=== PATIENT | male | born 1995 | race Caucasian/White ===

== ENCOUNTER 2025-09-17 23:30 | Emergency (ER) | payer MEDICAID ==
[~2025-09-17] VITALS: Ht 175.3 cm; Wt 75.0 kg
[2025-09-17 23:38] VITALS: O2SAT 99
[2025-09-18 01:09] LABS: CREATININE 1.0 mg/dL (0.6-1.3)
[2025-09-18 01:10] LABS: TROPONIN I HIGH SENSITIVITY < 4 ng/L (3.0-53); UREA NITROGEN BLOOD 9 mg/dL (9-23)
[2025-09-18 01:11] LABS: ASPARTATE AMINOTRANSFERASE 17 IU/L (<34)
[2025-09-18 01:12] LABS: BASOPHILS % 0.6 % (0.0-2.0); BILIRUBIN DIRECT < 0.1 mg/dL (<=3.0); BILIRUBIN TOTAL 0.3 mg/dL (0.1-1.0); EOSINOPHILS % 1.4 % (0.0-5.0); HEMATOCRIT. 42.4 % (42.0-52.0); HEMOGLOBIN. 13.8 g/dL (14.0-18.0); LYMPHOCYTES % 24.9 % (20.0-50.0); MEAN PLATELET VOLUME 7.6 fl (7.4-10.4); MONOCYTES % 6.7 % (2.0-8.0); NEUTROPHILS % 66.4 % (40.0-76.0); PLATELET 246 x1000/uL (130-400); PROTEIN TOTAL 7.1 g/dL (6.0-8.3); RED BLOOD CELL COUNT 5.40 mill/uL (4.7-6.1); RED CELL DISTRIBUTION WIDTH 19.0 % (11.6-14.6)
[2025-09-18 01:19] LABS: INR 1.0
[2025-09-18] MEDS ORDERED: IBUP-2030 MT (01:29)
[2025-09-18] MEDS: KETOROLAC 15MG/ML VIAL IV ONE (02:07)
[2025-09-18] MEDS: OXYCODONE HCL/ACETAMINOPHEN 5/325MG TABLET PO ONE (02:07)
[2025-09-18 02:16] VITALS: BP 109/75; PULSE 101; RESP 12; TEMP 36.8; O2SAT 99
== END 2025-09-18 02:17 | disposition home or self-care (01) ==
LOC: ER 23:30
DX: R07.89 Other chest pain (principal); I45.10 Unspecified right bundle-branch block; R06.02 Shortness of breath; Z79.899 Other long term (current) drug therapy
CPT/HCPCS: 99285; 71045; 36415; 93005; 96374; 71250; 80076; 80048; 83880; 83690; 83735; 85025; 85379; 85610; 85730; 84484; J1885